=== PATIENT | male | born 1950 | race Caucasian/White ===

== ENCOUNTER 2025-05-23 10:44 | Inpatient (IN) | payer MEDICARE ==
[2025-05-23] MEDS ORDERED: Cyanocobalamin (Vitamin B12) 1,000 MCG Tab PO SCH (11:00)
[2025-05-23 11:51] LABS: INR 1.3
[2025-05-23 14:52] LABS: PLATELET COUNT,PLT 394.0 K/uL (130-375); RED BLOOD CELL COUNT 3.4 M/uL (4.14-5.76); WHITE BLOOD CELL COUNT,WBC 9.5 K/uL (3.2-11.0)
[2025-05-23 15:13] LABS: A/G RATIO 0.7 (1.2-2.2); ALANINE AMINOTRANSFERASE,ALT 28 U/L (12-78); ASPARTATE AMNIOTRANSFERASE,AST 28 U/L (15-37); BILIRUBIN TOTAL 0.7 mg/dL (0.2-1.0); BLOOD UREA NITROGEN,BUN 19 mg/dL (7-18); CARBON DIOXIDE,CO2 29 mmol/L (21-32); CHLORIDE,CL 103 mmol/L (100-108); CREATININE 1.2 mg/dL (0.8-1.3); EST CRCL DRUG DOSING (CG) 55.64 mL/min; ESTIMATED GFR 64 mL/min (>60); GLUCOSE RANDOM 103 mg/dL (74-106); POTASSIUM,K 4.3 mmol/L (3.6-5.2); PROTEIN TOTAL,TP 7.0 g/dL (6.4-8.2); SODIUM,NA 140 mmol/L (140-148)
[2025-05-23] MEDS: Calcium Carbonate/Vitamin D3 1500 MG-400 Units Tab PO SCH (15:27)
[2025-05-23] MEDS: Cyanocobalamin (Vitamin B12) 1,000 MCG Tab PO SCH (15:27)
[2025-05-24 05:52] LABS: PLATELET COUNT,PLT 388.0 K/uL (130-375); RED BLOOD CELL COUNT 3.44 M/uL (4.14-5.76); WHITE BLOOD CELL COUNT,WBC 7.0 K/uL (3.2-11.0)
[2025-05-24 06:08] LABS: INR 1.2
[2025-05-24 06:17] LABS: A/G RATIO 0.8 (1.2-2.2); ALANINE AMINOTRANSFERASE,ALT 25 U/L (12-78); ASPARTATE AMNIOTRANSFERASE,AST 20 U/L (15-37); BILIRUBIN TOTAL 0.8 mg/dL (0.2-1.0); BLOOD UREA NITROGEN,BUN 15 mg/dL (7-18); CARBON DIOXIDE,CO2 27 mmol/L (21-32); CHLORIDE,CL 105 mmol/L (100-108); CREATININE 1.2 mg/dL (0.8-1.3); EST CRCL DRUG DOSING (CG) 55.64 mL/min; ESTIMATED GFR 64 mL/min (>60); GLUCOSE RANDOM 119 mg/dL (74-106); POTASSIUM,K 3.7 mmol/L (3.6-5.2); PROTEIN TOTAL,TP 6.9 g/dL (6.4-8.2); SODIUM,NA 141 mmol/L (140-148)
[2025-05-24] MEDS: Timolol Maleate 0.5% Ophth Soln 5 ML Bottle EYEBOTH SCH (09:23)
[2025-05-24] MEDS: WARFARIN PO ONE (13:44)
[2025-05-25 08:28] LABS: INR 1.3
[2025-05-26 08:31] LABS: INR 1.5
[2025-05-27 08:07] LABS: INR 1.6
[2025-05-27] MEDS: Hypromellose 0.3% Ophth Soln 15 ML Bottle EYEBOTH PRN (15:40)
[2025-05-28 08:37] LABS: INR 1.8
[2025-05-28] MEDS: Multivitamins with Iron/Calcium/Folic Acid/Minerals Tab PO SCH (09:42)
[2025-05-29 08:30] LABS: INR 2.5
[2025-05-30 08:34] LABS: INR 2.7
[2025-05-31 08:22] LABS: INR 3.0
[2025-05-31] MEDS: Warfarin** 1 MG TABLET PO SCH (14:11)
[2025-06-01] MEDS: Warfarin** 1 MG TABLET PO SCH (13:15)
[2025-06-03 08:15] LABS: INR 2.1
[2025-06-04 06:10] LABS: INR 2.2
[2025-06-05 06:05] LABS: INR 2.1
== END 2025-06-05 12:20 | disposition home or self-care (01) | DRG 948 ==
LOC: JP.ICU 10:44 → UNDOADMIN 10:44 → JP.MS 05-24 12:06
PROVIDERS: ADMIT Student in an Organized Health Care Education/Training Program; ATTEND Hospitalist
DX: R53.81 Other malaise (principal); I25.10 Atherosclerotic heart disease of native coronary artery without angina pectoris; E78.5 Hyperlipidemia, unspecified; I48.91 Unspecified atrial fibrillation; M10.9 Gout, unspecified; F32.9 Major depressive disorder, single episode, unspecified; G47.33 Obstructive sleep apnea (adult) (pediatric); F41.9 Anxiety disorder, unspecified; S72 Fracture of femur; I12.9 Hypertensive chronic kidney disease with stage 1 through stage 4 chronic kidney disease, or unspecified chronic kidney disease; N18.31 Chronic kidney disease, stage 3a; G47.00 Insomnia, unspecified; F10.90 Alcohol use, unspecified, uncomplicated; E78.00 Pure hypercholesterolemia, unspecified; Z98.890 Other specified postprocedural states; Z88.8 Allergy status to other drugs, medicaments and biological substances; Z79.82 Long term (current) use of aspirin; Z79.899 Other long term (current) drug therapy; Z79.01 Long term (current) use of anticoagulants; Z98.49 Cataract extraction status, unspecified eye; Z95.5 Presence of coronary angioplasty implant and graft; Z87.891 Personal history of nicotine dependence
CPT/HCPCS: 36415; 80053; 85027; 85610; 97110-GO; 97110-GP; 97116-GP; 97161-GP; 97165-GO; 97530-GP; 97535-GO; 99305; 99308; 99315; A9270-GY